=== PATIENT | male | born 1980 ===

== ENCOUNTER 2016-11-26 14:54 | Emergency (ER) | payer OTHER ==
[2016-11-26 15:20] VITALS: BP 136/78
--- NOTE | 2016-11-26 15:42 | UC ---
General HPI - HPI Summary HPI Summary: complaint of rash that started approx 1 week ago starts like a flat red sammy then gets itchy and opens up sometimes gest a scab sometimes has yellowish exudate constantly itching rash only appears where his clothes rub against his skin denies soaps ,detergents, foods medications denies fever wrestles for a hobby has used stop itch cream with some relief - History of Current Complaint Chief Complaint: UCSkin Stated Complaint: SKIN COMPLAINT X 1 WEEK Time Seen by Provider: 11/26/16 15:33 - Allergy/Home Medications Allergies/Adverse Reactions: Allergies Allergy/AdvReac Type Severity Reaction Status Date / Time No Known Allergies Allergy Verified 11/26/16 15:20 Home Medications: Home Medications Diphenhydramine-Zinc Acetate [Anti-Itch 1-0.1 %] 1 cre EX SEE INSTRUCTIONS PRN 11/26/16 [History Confirmed 11/26/16] PMH/Surg Hx/FS Hx/Imm Hx Previously Healthy: Yes Cardiovascular History Of: Denies: Hypertension Respiratory History Of: Denies: Asthma GI/ History Of: Denies: Gastroesophageal Reflux - Surgical History Surgical History: None - Family History Known Family History: Negative: Cardiac Disease, Hypertension, Diabetes - Social History Occupation: Employed Full-time Lives: With Family Alcohol Use: Weekly Substance Use Type: Marijuana Smoking Status (MU): Heavy Every Day Tobacco Smoker Amount Used/How Often: 1 ppd Length of Time of Smoking/Using Tobacco: 15 YRS Review of Systems Constitutional: Negative Skin: Rash Eyes: Negative ENT: Negative Respiratory: Negative Cardiovascular: Negative Gastrointestinal: Negative Genitourinary: Negative Motor: Negative Neurovascular: Negative Musculoskeletal: Negative Neurological: Negative Psychological: Negative All Other Systems Reviewed And Are Negative: Yes Physical Exam Triage Information Reviewed: Yes Appearance: No Pain Distress, Well-Nourished Vital Signs: Initial Vital Signs Temp 99.3 F 11/26/16 15:12 Pulse 88 11/26/16 15:12 Resp 16 11/26/16 15:12 BP 136/78 11/26/16 15:12 Pulse Ox 97 11/26/16 15:12 Vital Signs Reviewed: Yes Eyes: Positive: Conjunctiva Clear ENT: Positive: Pharynx normal, Nasal drainage. Negative: Nasal congestion Neck: Positive: No Lymphadenopathy Respiratory: Positive: Lungs clear, Normal breath sounds, No respiratory distress Cardiovascular: Positive: RRR, No Murmur, Pulses Normal Abdomen Description: Positive: Nontender, Soft Bowel Sounds: Positive: Present Musculoskeletal: Positive: No Edema Neurological: Positive: Alert Psychological Exam: Normal Skin: Positive: Other - arms, legs and back - scattered erythematous flat areas with yellow exudate -some have scabbed over Course/Dx - Course Course Of Treatment: exam completed. do not appears to be parastic bites. will treat for impetigo with bactroban - Differential Dx - Multi-Symptom Provider Diagnoses: impetigo Discharge - Discharge Plan Condition: Stable Disposition: HOME Prescriptions: Mupirocin 2% OINT* [Bactroban 2 % Oint*] 1 applic TOPICAL BID #1 tube Patient Education Materials: Impetigo (ED) Referrals: No Primary Care Phys,NOPCP [Primary Care Provider] - [facility] [Outside] Additional Instructions: Your blood pressure is pre-hypertensive reading. Please contact your primary care provider within 1 day -4 weeks for further evaluation. Please use bactroban as directed Increase fluids and rest Take acetaminophen or ibuprofen for fever or pain Please review your discharge instructions. If your symptoms do not improve please call your primary care provider or return to urgent care.
== END 2016-11-26 15:58 | disposition home or self-care (01) ==
LOC: UCCORT 14:54
DX: L01.00 Impetigo, unspecified (principal); F17.210 Nicotine dependence, cigarettes, uncomplicated
CPT/HCPCS: 99212; G0463

== ENCOUNTER 2016-12-03 17:01 | Emergency (ER) | payer OTHER ==
[2016-12-03 17:38] VITALS: BP 139/67
--- NOTE | 2016-12-03 18:19 | ED ---
Skin Complaint - HPI Summary HPI Summary: 36 yr old male with the complaint of rash. HPI: the patient has had a rash that is generalized to trunk, arms, legs and neck and on his chin now. He lives with girlfriend and also two young children and nobody else has any rash. The patient works as a knapp. He was seen last week and topical prescription given for his skin. His rash is burning and itching. It appears and he itches it and isolated scab forms. He has no lesions in his axilla, groin, or in between toes or fingers. He has no fever or chills. He does not use drugs or needles. He has not felt sick. He has no primary care doctor. The patient states he broke up with girlfriend this past week. He thinks she was cheating on him a few months ago. He states he has not had any more sexual partners than his one girlfriend. He denies penile drainage. Denies dysuria. He denies joint pain. Denies fever and chills - History of Current Complaint Chief Complaint: UCRash Time Seen by Provider: 12/03/16 17:39 Stated Complaint: RE CK/SKIN COMPLAINT - Allergy/Home Medications Allergies/Adverse Reactions: Allergies Allergy/AdvReac Type Severity Reaction Status Date / Time No Known Allergies Allergy Verified 12/03/16 17:38 PMH/Surg Hx/FS Hx/Imm Hx Previously Healthy: Yes Cardiovascular History: Denies: Hx Hypertension Respiratory History: Denies: Hx Asthma Infectious Disease History: No Infectious Disease History: Denies: Hx Clostridium Difficile, Hx Hepatitis, Hx Human Immunodeficiency Virus (HIV), Hx of Known/Suspected MRSA, Hx Shingles, Hx Tuberculosis, Hx Known/ Suspected VRE, Hx Known/Suspected VRSA, History Other Infectious Disease, Traveled Outside the [place] in Last 30 Days - Family History Known Family History: Negative: Cardiac Disease, Hypertension, Diabetes - Social History Alcohol Use: Weekly Substance Use Type: Reports: Marijuana Substance Use Comment - Amount & Last Used: daily usage Smoking Status (MU): Heavy Every Day Tobacco Smoker Type: Cigarettes Amount Used/How Often: 1 ppd Length of Time of Smoking/Using Tobacco: 15 YRS Have You Smoked in the Last Year: Yes Review of Systems Constitutional: Negative Eyes: Negative ENT: Negative Cardiovascular: Negative Respiratory: Negative Gastrointestinal: Negative Genitourinary: Negative Musculoskeletal: Negative Positive: Rash Neurological: Negative All Other Systems Reviewed And Are Negative: Yes Physical Exam Triage Information Reviewed: Yes Vital Signs On Initial Exam: Initial Vitals Temp Pulse Resp BP Pulse Ox 98.9 F 77 16 139/67 100 12/03/16 17:26 12/03/16 17:26 12/03/16 17:26 12/03/16 17:26 12/03/16 17:26 Vital Signs Reviewed: Yes Appearance: Positive: Well-Appearing, No Pain Distress Skin: Positive: Warm, Other - he has a rash to the skin that appears as red bumps, and secondary lesions after scratch look like scabs. there are a couple of isolated pustules most notably on the left forearm on a red base that is tender, no vesicles, no abscess. He has a lesion on his foot that he states he stuck a needle in and yellow clear fluid came out. He states the rash is painful all over. l. Negative: Purpura, Scaly Skin/Lesions, Weeping Skin/ Lesions, Reagan Tracts Cardiovascular: Positive: Normal, RRR. Negative: Murmur Abdomen Description: Positive: Nontender Musculoskeletal: Positive: Normal, Strength/ROM Intact Neurological: Positive: Normal, Sensory/Motor Intact, Alert, Oriented to Person Place, Time, CN Intact II-III Psychiatric: Positive: Normal Diagnostics - Vital Signs Vital Signs Temp Pulse Resp BP Pulse Ox 12/03/16 17:26 98.9 F 77 16 139/67 100 - Laboratory Lab Statement: Any lab studies that have been ordered have been reviewed, and results considered in the medical decision making process. Course/Dx - Course Course Of Treatment: I have explained to this patient that even though he had no symptoms from his penis of drainage or burning on urination that he could have an STD that has spread to his skin. I explained that at this point it is not possible to tell him either way. I have explained that he needs to go to the ER for further evaluation, blood work, testing and possible IV antibiotics. He refused to go to the ER now. He is aware of the risks. He feels he will go later today perhaps to some ER but doesn't know where. - Diagnoses Provider Diagnoses: Rash Discharge - Discharge Plan Condition: Good Disposition: AGAINST MEDICAL ADVICE Referrals: No Primary Care Phys,NOPCP [Primary Care Provider] -
== END 2016-12-03 18:38 | disposition left against medical advice (07) ==
LOC: UCCORT 17:01
DX: R21 Rash and other nonspecific skin eruption (principal); F17.210 Nicotine dependence, cigarettes, uncomplicated
CPT/HCPCS: 99212; G0463

== ENCOUNTER 2019-03-23 11:40 | Emergency (ER) | payer OTHER ==
[2019-03-23 12:09] VITALS: BP 131/96
[2019-03-23] MEDS ORDERED: Acetaminophen TAB* 325 MG PO ONE (12:19)
--- NOTE | 2019-03-23 12:27 | ED ---
Neck Pain - HPI Summary HPI Summary: 38 yr old male with the complaint of right posterior neck stiffness, pain from the mastoid protuberance and on posterior right side of neck, onset a week ago. The patient's pain is worse with turning head to the right. No weakness, no numbness in arms or legs. No fever or chills. No other complaints. Symptoms are moderate. No headache. - History of Current Complaint Chief Complaint: UCGeneralIllness Stated Complaint: NECK PAIN Time Seen by Provider: 03/23/19 12:10 Pain Intensity: 2 - Allergies/Home Medications Allergies/Adverse Reactions: Allergies Allergy/AdvReac Type Severity Reaction Status Date / Time No Known Allergies Allergy Verified 03/23/19 12:09 Home Medications: Home Medications Naproxen Sodium [Aleve] 1 tab PO ONCE 03/23/19 [History Confirmed 03/23/19] PMH/Surg Hx/FS Hx/Imm Hx Cardiovascular History: Denies: Hx Hypertension Respiratory History: Denies: Hx Asthma Infectious Disease History: No Infectious Disease History: Denies: Hx Clostridium Difficile, Hx Hepatitis, Hx Human Immunodeficiency Virus (HIV), Hx of Known/Suspected MRSA, Hx Shingles, Hx Tuberculosis, Hx Known/ Suspected VRE, Hx Known/Suspected VRSA, History Other Infectious Disease, Traveled Outside the [place] in Last 30 Days - Family History Known Family History: Positive: None Negative: Cardiac Disease, Hypertension, Diabetes - Social History Alcohol Use: Occasionally Substance Use Type: Reports: None Substance Use Comment - Amount & Last Used: daily usage Smoking Status (MU): Heavy Every Day Tobacco Smoker Type: Cigarettes Amount Used/How Often: 2/3 ppd Length of Time of Smoking/Using Tobacco: 15 YRS Have You Smoked in the Last Year: Yes Review of Systems Constitutional: Negative Musculoskeletal: Other - right side neck pain Negative: Headache All Other Systems Reviewed And Are Negative: Yes Physical Exam Triage Information Reviewed: Yes Vital Signs On Initial Exam: Initial Vitals Temp Pulse Resp BP Pulse Ox 97.7 F 77 15 131/96 98 03/23/19 12:04 03/23/19 12:04 03/23/19 12:04 03/23/19 12:04 03/23/19 12:04 Vital Signs Reviewed: Yes Appearance: Positive: Well-Appearing, No Pain Distress Skin: Positive: Warm, Skin Color Reflects Adequate Perfusion Head/Face: Positive: Normal Head/Face Inspection Eyes: Positive: EOMI ENT: Positive: Normal ENT inspection, Other - no mastoid swelling or tenderness. Neck: Positive: Nontender, No Lymphadenopathy, Other: - he has slight decreased range of motion on turning his head to the right. Normal ROM on looking to the left. Respiratory/Lung Sounds: Positive: Clear to Auscultation, Breath Sounds Present Cardiovascular: Positive: RRR. Negative: Murmur Abdomen Description: Negative: Distended Musculoskeletal: Positive: Strength/ROM Intact Neurological: Positive: Sensory/Motor Intact, Alert, Oriented to Person Place, Time, CN Intact II-III Psychiatric: Positive: Normal - Cheryl Coma Scale Best Eye Response: 4 - Spontaneous Best Motor Response: 6 - Obeys Commands Best Verbal Response: 5 - Oriented Coma Scale Total: 15 Diagnostics - Vital Signs Vital Signs Temp Pulse Resp BP Pulse Ox 03/23/19 12:04 97.7 F 77 15 131/96 98 - Laboratory Lab Statement: Any lab studies that have been ordered have been reviewed, and results considered in the medical decision making process. - Radiology cervical spine Radiology Interpretation Completed By: Radiologist - DJD, disc disease. Neck Course/Dx - Course Course Of Treatment: 38 yr old with right side neck pain, djd and disc disease on xray. Rx medrol dose louie. FU with PMD. - Diagnoses Provider Diagnoses: Torticollis, DJD (degenerative joint disease) of cervical spine Discharge - Sign-Out/Discharge Documenting (check all that apply): Patient Departure All imaging exams completed and their final reports reviewed: Yes - Discharge Plan Condition: Good Disposition: HOME Prescriptions: methylPREDNISolone [Medrol] 4 mg PO .SEE LOUIE INSTRUCTION #1 [id number] Patient Education Materials: Cervical Disc Herniation (ED), Spasmodic Torticollis (ED), Hypertension (ED) Referrals: Terese Palafox MD [Primary Care Provider] - 2 Days - Billing Disposition and Condition Condition: GOOD Disposition: Home
== END 2019-03-23 12:57 | disposition home or self-care (01) ==
LOC: UCCORT 11:40
DX: M43.6 Torticollis (principal); M47.892 Other spondylosis, cervical region; F17.210 Nicotine dependence, cigarettes, uncomplicated
CPT/HCPCS: 72050; 99212; A9270-GY; G0463